=== PATIENT | female | born 1965 | race Caucasian/White ===

== ENCOUNTER 2018-09-07 10:54 | Emergency (ER) | payer BC ==
--- NOTE | 2018-09-07 12:07 | RAD REPORT ---
EXAM DESCRIPTION: CT - [id number] - 09/07/2018 11:45 am CLINICAL HISTORY: Trauma, head and neck injury. PAIN COMPARISON: No comparisons TECHNIQUE: Axial 5 mm thick images of the head were obtained. Axial 2 mm thick images of the cervical spine were obtained with sagittal and coronal reconstruction images generated and reviewed. All CT scans are performed using dose optimization technique as appropriate and may include automated exposure control or mA/KV adjustment according to patient size. 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 The paranasal sinuses and mastoids are clear.The calvarium is intact. CT CERVICAL SPINE WITHOUT CONTRAST: Lucency is present involving the right occipital condyle, compatible with fracture. The age of this f racture is not completely certain, however acute is possible.No subluxation. Multilevel spondylosis o f the mid and lower cervical spine is present with small endplate osteophytes. IMPRESSION: Lucency is noted in the right occipital condyle which is most compatible with fracture. Age of this injury is uncertain, however, acute fracture is possible if there is history of recent tr auma. MR imaging of the cervical spine may be of value for further assessment. No acute intracranial abnormality.
[2018-09-07 12:19] LABS: Urine Blood TRACE (NEG); Urine Glucose NEGATIVE (NEG); Urine Protein NEGATIVE (NEG); Urine Specific Gravity 1.015 (1.005-1.030)
--- NOTE | 2018-09-07 12:29 | EDPHYS ---
Physician Documentation [facility] Name: Ashley Rojas Age: 53 yrs Sex: Female : 1965 Arrival Date: 09/07/2018 Time: 10:56 Bed 20 Private MD: Solomon Cook ED Physician Pernell Hicks HPI: 09/07 12:18 This 53 yrs old Female presents to ER via Ambulatory with complaints of kb Headache, Neck Pain, >24Hrs Old. 12:18 The patient or guardian reports injury, pain. The complaints affect the left side of kb forehead. Context of injury: The problem was sustained at hotel bathroom. Onset: The symptoms/episode began/occurred 1 week(s) ago. Associated signs and symptoms: Loss of consciousness: This patient experience a loss of consciousness, that was brief, Pertinent positives: loss of conciousness, headache, injury, neck pain. Severity of symptoms: At their worst the symptoms were moderate, in the emergency department the symptoms have improved, markedly. The patient has not experienced similar symptoms in the past. The patient has not recently seen a physician. Pt reports she fell in a hotel bathroom last week, hit her head on the sink and her neck on the counter. Reports LOC at the time. States she has had mild intermittent headaches since then and the muscles in her neck feel tight. Came in today because her family had been bugging her to get evaluated, she called her PCP (Joey) and was told to come to ER for eval. Pt denies blurred vision, dizziness, weakness, numbness.. 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 - Social history:: Smoking status: Patient/guardian denies using tobacco. - Ebola Screening: : Patient negative for fever greater than or equal to 101.5 degrees Fahrenheit, and additional compatible Ebola Virus Disease symptoms Patient denies exposure to infectious person Patient denies travel to an Ebola-affected area in the 21 days before illness onset No symptoms or risks identified at this time. ROS: 12:16 Constitutional: Negative for fever, chills, and weight loss, Cardiovascular: Negative kb for chest pain, palpitations, and edema, Respiratory: Negative for shortness of breath, cough, wheezing, and pleuritic chest pain, Abdomen/GI: Negative for abdominal pain, nausea, vomiting, diarrhea, and constipation, Back: Negative for injury and pain, : Negative for injury, bleeding, discharge, and swelling, MS/Extremity: Negative for injury and deformity. 12:16 Neck: Positive for stiffness. 12:16 Skin: Positive for ecchymosis, of the left side of forehead. 12:16 Neuro: Positive for headache, Negative for altered mental status, dizziness, gait disturbance, hearing loss, loss of consciousness, numbness, seizure activity, speech changes, syncope, near syncope, tingling, tinnitus, tremor, visual changes, weakness. Exam: 12:16 Constitutional: This is a well developed, well nourished patient who is awake, alert, kb and in no acute distress. ENT: Nares patent. No nasal discharge, no septal abnormalities noted. Tympanic membranes are normal and external auditory canals are clear. Oropharynx with no redness, swelling, or masses, exudates, or evidence of obstruction, uvula midline. Mucous membranes moist. Neck: Trachea midline, no thyromegaly or masses palpated, and no cervical lymphadenopathy. Supple, full range of motion without nuchal rigidity, or vertebral point tenderness. No Meningismus. Chest/axilla: Normal chest wall appearance and motion. Nontender with no deformity. No lesions are appreciated. Cardiovascular: Regular rate and rhythm with a normal S1 and S2. No gallops, murmurs, or rubs. Normal PMI, no JVD. No pulse deficits. Respiratory: Lungs have equal breath sounds bilaterally, clear to auscultation and percussion. No rales, rhonchi or wheezes noted. No increased work of breathing, no retractions or nasal flaring. Abdomen/GI: Soft, non-tender, with normal bowel sounds. No distension or tympany. No guarding or rebound. No evidence of tenderness throughout. Back: No spinal tenderness. No costovertebral tenderness. Full range of motion. Skin: Warm, dry with normal turgor. Normal color with no rashes, no lesions, and no evidence of cellulitis. MS/ Extremity: Pulses equal, no cyanosis. Neurovascular intact. Full, normal range of motion. Neuro: Awake and alert, GCS 15, oriented to person, place, time, and situation. Cranial nerves II-XII grossly intact. Motor strength 5/5 in all extremities. Sensory grossly intact. Cerebellar exam normal. Normal gait. 12:16 Head/face: Noted is no obvious of injury or deformity except ecchymosis, that is moderate, of the left side of forehead. Vital Signs: 11:04 BP 154 / 78; Pulse 46; Resp 19; Temp 98.3; Pulse Ox 99% on R/A; Weight 129.27 kg; aj Height 5 ft. 7 in. (170.18 cm); 12:30 BP 125 / 79; Pulse 47; Resp 14 S; Pulse Ox 99% on R/A; Pain 2/10; jl7 11:04 Body Mass Index 44.64 (129.27 kg, 170.18 cm) aj Dayana Coma Score: 12:18 Eye Response: spontaneous(4). Verbal Response: oriented(5). Motor Response: obeys kb commands(6). Total: 15. 12:18 Eye Response: spontaneous(4). Verbal Response: oriented(5). Motor Response: obeys kb commands(6). Total: 15. MDM: 11:11 Patient medically screened. kb 12:18 Data reviewed: vital signs, nurses notes. Data interpreted: Pulse oximetry: on room air kb is 99 %. Interpretation: normal. Counseling: I had a detailed discussion with the patient and/or guardian regarding: the historical points, exam findings, and any diagnostic results supporting the discharge/admit diagnosis, radiology results, the need for outpatient follow up, a family practitioner, to return to the emergency department if symptoms worsen or persist or if there are any questions or concerns that arise at home. 12:26 ED course: Pt has no tenderness to neck or base of skull to suggest acute fracture. kb Reports the tightness in her neck is more on the left side. Normal neuro exam. Educated to follow up with PCP and neurosurgery. . 12:28 Data reviewed: I have discussed the patient's presentation/case with the attending Emergency Department Physician;. 09/07 12:04 Order name: Urine Dipstick--Ancillary (enter results); Complete Time: 12:32 bd 09/07 12:04 Order name: Urine --Ancillary (enter results); Complete Time: 12:32 bd 09/07 11:17 Order name: CT Head C Spine; Complete Time: 12:09 Administered Medications: No medications were administered Disposition: 17:43 Co-signature as Attending Physician, Pernell Hicks MD I agree with the assessment and kdr plan of care. Disposition: 09/07/18 12:29 Discharged to Home. Impression: Unspecified occipital condyle fracture. - Condition is Stable. - Discharge Instructions: Head Injury, Adult, [id number]. - Prescriptions for Cyclobenzaprine 10 mg Oral Tablet - take 1 tablet by ORAL route every 8 hours As needed; 21 tablet. - Medication Reconciliation Form, Thank You Letter, Antibiotic Education, Prescription Opioid Use form. - Follow up: Emergency Department; When: As needed; Reason: Worsening of condition. Follow up: Solomon Cook MD; When: 2 - 3 days; Reason: Recheck today's complaints, Continuance of care, Re-evaluation by your physician. Signatures: Dispatcher [employer] EDSharonda Meadows, RELATIONSHIP BANKER-C RELATIONSHIP BANKER-Belia Hill, RN Pernell Barnes MD MD [facility] Amy Quinn RN RN jl7 Corrections: (The following items were deleted from the chart) 12:49 12:29 09/07/2018 12:29 Discharged to Home. Impression: Unspecified occipital condyle jl7 fracture. Condition is Stable. Forms are Medication Reconciliation Form, Thank You Letter, Antibiotic Education, Prescription Opioid Use. Follow up: Emergency Department; When: As needed; Reason: Worsening of condition. Follow up: Solomon Cook; When: 2 - 3 days; Reason: Recheck today's complaints, Continuance of care, Re-evaluation by your physician. kb
--- NOTE | 2018-09-07 12:29 | ER ---
Nurse's Notes [facility] Name: Ashley Rojas Age: 53 yrs Sex: Female : 1965 Arrival Date: 09/07/2018 Time: 10:56 Bed 20 Private MD: Solomon Cook Diagnosis: Unspecified occipital condyle fracture Presentation: 09/07 11:01 Presenting complaint: Patient states: Reports episode of dizziness 1 week ago with aj syncope. Patient hit left forehead on sink during fall. Reports pain to left forehead and back of neck. Transition of care: patient was not received from another setting of care. Onset of symptoms was August 31, 2018. Risk Assessment: Do you want to hurt yourself or someone else? Patient reports no desire to harm self or others. Initial Sepsis Screen: Does the patient meet any 2 criteria? No. Patient's initial sepsis screen is negative. Does the patient have a suspected source of infection? No. Patient's initial sepsis screen is negative. Care prior to arrival: None. 11:01 Method Of Arrival: Ambulatory aj 11:01 Acuity: ELLIOTT 3 aj Triage Assessment: 11:04 Headache History: The patient has had previous headaches. General: Appears in no aj apparent distress. comfortable, Behavior is calm, cooperative, appropriate for age. Pain: Complains of pain in head and back of neck Pain currently is 1 out of 10 on a pain scale. Pain began 1 week ago. Neuro: Level of Consciousness is awake, alert, obeys commands, Oriented to person, place, time, situation, Appropriate for age. Respiratory: Airway is patent Respiratory effort is even, unlabored, Respiratory pattern is regular, symmetrical. Derm: Skin is intact, is healthy with good turgor, Skin is pink, warm \T\ dry. normal, Bruising that is brown, on forehead and right eye. 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 - Social history:: Smoking status: Patient/guardian denies using tobacco. - Ebola Screening: : Patient negative for fever greater than or equal to 101.5 degrees Fahrenheit, and additional compatible Ebola Virus Disease symptoms Patient denies exposure to infectious person Patient denies travel to an Ebola-affected area in the 21 days before illness onset No symptoms or risks identified at this time. Screenin:30 Abuse screen: Denies threats or abuse. Denies injuries from another. Nutritional jl7 screening: No deficits noted. Tuberculosis screening: No symptoms or risk factors identified. Fall Risk None identified. Assessment: 11:30 General: Appears in no apparent distress. uncomfortable, Behavior is calm, cooperative, jl7 appropriate for age. Pain: Complains of pain in forehead and back of neck Pain currently is 2 out of 10 on a pain scale. Quality of pain is described as throbbing, Is continuous. Neuro: Level of Consciousness is awake, alert, obeys commands, Oriented to person, place, time, situation. Cardiovascular: Patient's skin is warm and dry. Respiratory: Airway is patent Respiratory effort is even, unlabored, Respiratory pattern is regular, symmetrical. GI: No signs and/or symptoms were reported involving the gastrointestinal system. : No signs and/or symptoms were reported regarding the genitourinary system. EENT: No signs and/or symptoms were reported regarding the EENT system. Derm: Skin is pink, warm \T\ dry. Musculoskeletal: No signs and/or symptoms reported regarding the musculoskeletal system. 12:30 Reassessment: Patient appears in no apparent distress at this time. No changes from jl7 previously documented assessment. Patient and/or family updated on plan of care and expected duration. Pain level reassessed. Patient is alert, oriented x 3, equal unlabored respirations, skin warm/dry/pink. Vital Signs: 11:04 BP 154 / 78; Pulse 46; Resp 19; Temp 98.3; Pulse Ox 99% on R/A; Weight 129.27 kg; aj Height 5 ft. 7 in. (170.18 cm); 12:30 BP 125 / 79; Pulse 47; Resp 14 S; Pulse Ox 99% on R/A; Pain 2/10; jl7 11:04 Body Mass Index 44.64 (129.27 kg, 170.18 cm) Dayana Coma Score: 12:18 Eye Response: spontaneous(4). Verbal Response: oriented(5). Motor Response: obeys kb commands(6). Total: 15. 12:18 Eye Response: spontaneous(4). Verbal Response: oriented(5). Motor Response: obeys kb commands(6). Total: 15. ED Course: 10:56 Patient arrived in ED. mr 10:56 Solomon Cook MD is Private Physician. mr 11:02 Triage completed. aj 11:04 Arm band placed on right wrist. Patient placed in an exam room. aj 11:11 Sharonda Reilly FNP-C is PSYCHIATRICP. kb 11:11 Pernell Hicks MD is Attending Physician. kb 11:20 Urine collected: clean catch specimen, clear, les colored. jp3 11:30 Patient has correct armband on for positive identification. Call light in reach. jl7 11:45 CT Head C Spine In Process Unspecified. EDMS 11:49 Amy Quinn, IVORY is Primary Nurse. jl7 12:28 Solomon Cook MD is Referral Physician. kb 12:48 No provider procedures requiring assistance completed. Patient did not have IV access jl7 during this emergency room visit. Administered Medications: No medications were administered Outcome: 12:29 Discharge ordered by MD. kb 12:48 Discharged to home ambulatory. jl7 12:48 Condition: stable 12:48 Discharge instructions given to patient, Instructed on discharge instructions, follow up and referral plans. medication usage, Demonstrated understanding of instructions, follow-up care, medications, Prescriptions given X 1. 12:49 Patient left the ED. jl7 Signatures: Dispatcher [employer] EDVA Sharonda Reilly FNP-C FNP-Ckb Myers, Amanda RN Ghazala Elizalde mr Amy Quinn RN RN jl7 Pisarski, Jacob jp3
== END 2018-09-07 12:49 | disposition home or self-care (01) ==
LOC: ER 10:54
DX: S02.113A Unspecified occipital condyle fracture, initial encounter for closed fracture (principal); W01.198A Fall on same level from slipping, tripping and stumbling with subsequent striking against other object, initial encounter; Y93.9 Activity, unspecified; Y92.59 Other trade areas as the place of occurrence of the external cause; I10 Essential (primary) hypertension
CPT/HCPCS: 70450; 72125; 81003; 81025; 99283